=== PATIENT | male | born 1985 | race Two or more races ===

== ENCOUNTER 2020-06-30 21:28 | Emergency (ER) | payer OTHER ==
[~2020-06-30] VITALS: Ht 177.8 cm; Wt 75.7 kg
== END 2020-06-30 23:42 | disposition home or self-care (01) ==
LOC: ER 21:28
DX: J11.1 Influenza due to unidentified influenza virus with other respiratory manifestations (principal); U07.1 COVID-19

== ENCOUNTER 2021-03-03 18:26 | Emergency (ER) | payer OTHER ==
[~2021-03-03] VITALS: Ht 175.3 cm; Wt 75.3 kg
[2021-03-04] MEDS ORDERED: PEPCID40 MG PO (04:19)
[2021-03-04] MEDS ORDERED: ZOFRAN8 MG PO (04:19)
== END 2021-03-04 04:55 ==
LOC: ER 18:26
DX: A08.39 Other viral enteritis (principal); E86.0 Dehydration; R68.89 Other general symptoms and signs